=== PATIENT | male | born 1950 | race Caucasian/White ===

== ENCOUNTER → 2024-11-14 | Outpatient (CLI) | payer MEDICARE, BC, SELFPAY ==
[2024-11-14 09:23] LABS: Glucose Estimated Average 120 mg/dL (80-131); Hemoglobin A1C 5.8 % Hgb (4.8-6.0)
[2024-11-14 09:37] LABS: Alanine Aminotransferase 23 U/L (10-49); Albumin, Serum 4.3 gm/dL (3.4-4.8); Alkaline Phosphatase 77 U/L (46-116); Anion Gap 7 (7-16); Aspartate Amino Transferase 18 U/L (0-34); BUN/Creatinine Ratio 25 Ratio (12-20); Bilirubin,Total 0.7 mg/dL (0.3-1.2); Blood Urea Nitrogen 15 mg/dL (9-23); Calcium 9.2 mg/dL (8.3-10.6); Calcium (Corrected) 9.2 mg/dL (8.5-10.1); Carbon Dioxide 25.8 mMol/L (20.0-31.0); Chloride 105 mMol/L (98-107); Creatinine (Component) 0.6 mg/dL (0.6-1.3); Globulin 2.2 gm/dL (2.3-3.5); Glucose 124 mg/dL (74-106); Osmolality,Calculated 277 (275-295); Potassium 4.3 mMol/L (3.4-5.1); Sodium 138 mMol/L (136-145); Total Protein 6.5 gm/dL (5.7-8.2); eGFR > 60 See Note
[2024-11-14 09:52] LABS: Cardiac Risk Estimate 3.7 RATIO (4.0-6.7); Cholesterol 123 mg/dL (132-200); HDL Cholesterol 33 mg/dL (40-60); LDL Cholesterol,Calculated 66 mg/dL (0-130); Triglycerides 120 mg/dL (30-150)
[2024-11-14 09:53] LABS: Creatinine MALB Rnd Ur 104 mg/dL (30-125); Microalbumin Creat Ratio 4 mg/gCrea (<30); Microalbumin, Random Urine 4 mg/L (0-300)
== END | disposition home or self-care (01) ==
LOC: COPL 07:48
PROVIDERS: PCP Family Medicine; Referring Provider Family Medicine; Visit Provider Family Medicine
DX: E11.42 Type 2 diabetes mellitus with diabetic polyneuropathy (principal)
CPT/HCPCS: 36415; 80053; 80061; 82043; 82570; 83036

== ENCOUNTER 2025-05-04 07:14 | Emergency (ER) | payer MEDICARE, BC, SELFPAY ==
[2025-05-04 07:37] VITALS: BP 150/76; PULSE 58; RESP 18; TEMP 36.3; O2SAT 95; BMI 33.0
--- NOTE | 2025-05-04 07:46 | XR_ITS ---
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
--- NOTE | 2025-05-04 07:46 | XR_ITS ---
Examination: Foot, left, 3 views Technique: AP, oblique, lateral views foot, 3 views Date and time of exam: May 04, 2025, 0754 hours INDICATIONS: Left foot swelling and pain post venous procedure October 2024 FINDINGS: Moderate osteoarthritis first metatarsophalangeal joint Old fracture appearing deformities involving bases fifth fourth and third metatarsals Moderate osteoarthritis tarsometatarsal joints Moderate osteoarthritis intertarsal joints as well as tibiotalar and subtalar joint Abundant ossification in the Achilles insertion 4 mm plantar bony calcaneal spur IMPRESSION: Significant osteoarthritis as above No tona cortical bone destruction, no foreign body
--- NOTE | 2025-05-04 07:46 | XR_ITS ---
Examination: Duplex scan of the lower extremity, unilateral left Date and time of exam: Artery 17, 2024, 0819 hours INDICATIONS: Left foot swelling bruising several months Technique: Duplex scan of the extremity veins using B-mode/grayscale imaging and Doppler spectral analysis and color flow Attention is directed to internal echogenicity, compression and augmentation involving these veins, color flow assessment, spectral analysis Findings: Major deep venous structures in the extremity demonstrate normal course and caliber. There is no evidence of deep vein thrombosis. Normal color flow and spectral analysis Impression: Negative for DVT..
[2025-05-04 08:10] LABS: Basophils # (Auto) 0.0 Thou/mm3 (0.0-0.2); Basophils % (Auto) 1 % (0-2.5); Eosinophils # (Auto) 0.1 Thou/mm3 (0.0-0.5); Eosinophils % (Auto) 2 % (0-10); Hematocrit 38.6 % (41.0-53.0); Hemoglobin 13.4 g/dL (13.5-16.0); Immature Granulocytes Auto 0.01 Thou/mm3 (0.00-0.00); Lymphocytes # (Auto) 1.4 Thou/mm3 (1.0-4.8); Lymphocytes % (Auto) 40 % (10-50); Mean Corpuscular HGB Conc 34.7 g/dl (31.0-37.0); Mean Corpuscular Hemoglobin 31.8 pg (25.0-35.0); Mean Corpuscular Volume 92 fL (80-100); Monocytes # (Auto) 0.7 Thou/mm3 (0.0-0.8); Monocytes % (Auto) 20 % (0-12); Neutrophils # (Auto) 1.2 Thou/mm3 (1.8-7.7); Neutrophils % (Auto) 37 % (37-80); Nucleated Red Blood Cell # 0.00 Thou/mm3 (0.00-0.00); Nucleated Red Blood Cell % 0 /100 WBC (0); Platelet Count 199 Thou/mm3 (140-440); RDW Standard Deviation 49.4 fL (35.1-43.9); Red Blood Count 4.21 Miln/mm3 (4.50-5.90); White Blood Count 3.4 Thou/mm3 (3.8-10.6)
[2025-05-04 08:30] LABS: Alanine Aminotransferase 25 U/L (10-49); Albumin, Serum 4.2 gm/dL (3.4-4.8); Albumin/Globulin Ratio 2.1 (1.2-2.2); Alkaline Phosphatase 89 U/L (46-116); Anion Gap 8 (7-16); Aspartate Amino Transferase 23 U/L (0-34); BUN/Creatinine Ratio 19 Ratio (12-20); Bilirubin,Total 0.6 mg/dL (0.3-1.2); Blood Urea Nitrogen 13 mg/dL (9-23); Calcium 9.0 mg/dL (8.3-10.6); Calcium (Corrected) 9.0 mg/dL (8.5-10.1); Carbon Dioxide 28.2 mMol/L (20.0-31.0); Chloride 108 mMol/L (98-107); Creatinine (Component) 0.7 mg/dL (0.6-1.3); Estimated Creatinine Clearance 112.0 mL/min (>60); Globulin 2.0 gm/dL (2.3-3.5); Glucose 127 mg/dL (74-106); INR 1.1 (0.9-1.3); Osmolality,Calculated 288 (275-295); Partial Thromboplastin Time 33.3 Seconds (22.0-36.0); Potassium 4.1 mMol/L (3.4-5.1); Prothrombin Time 11.3 Seconds (9.0-12.2); Sodium 144 mMol/L (136-145); Total Protein 6.2 gm/dL (5.7-8.2); eGFR > 60 See Note
--- NOTE | 2025-05-04 08:55 | PD.EDEXREM ---
ED Extremity Problem RME/HPI General Chief complaint: Extremity Problem,Nontraumatic Stated complaint: Left leg swelling, vein seal done in October Time Seen by Provider: 05/04/25 07:28 Arrival date/time: 05/04/25 07:14 74-year-old male presents to the Emergency Department for complaints of left leg pain and swelling with mild bruising. Limitations: no limitations Related Data Home Medications ?Medication ?Instructions ?Recorded ?Confirmed atorvastatin 20 mg tablet 20 mg PO QDAY 02/21/19 07/29/21 clonazepam 0.5 mg tablet 0.5 mg PO BID 02/21/19 07/29/21 losartan 100 mg tablet 100 mg PO QDAY 02/21/19 07/29/21 metformin 850 mg tablet 850 mg PO BID 02/21/19 07/29/21 primidone 50 mg tablet 150 mg PO HS 02/21/19 07/29/21 cholecalciferol (vitamin D3) 50 50 mcg PO QDAY 07/29/21 07/29/21 mcg (2,000 unit) tablet (Vitamin D3) vitamin B complex 1 tab PO QDAY 07/29/21 07/29/21 Previous Rx's ?Medication ?Instructions ?Recorded ibuprofen 600 mg tablet 600 mg PO Q8H PRN fever or pain 02/11/24 #20 tabs Allergies Allergy/AdvReac Type Severity Reaction Status Date / Time No Known Allergies Allergy Verified 05/04/25 07:21 Review of Systems Review of Systems Systems Reviewed: All systems reviewed, normal except as documented Constitutional Constitutional: Reports system reviewed and no additional complaints, except as documented, Denies fever(s) and Denies headache(s) Eyes Eyes: Reports system reviewed and no additional complaints, except as documented and Denies blurry vision ENT Ears, Nose, Mouth, and Throat: Reports system reviewed and no additional complaints, except as documented, Denies headache(s), Denies nasal congestion and Denies nasal discharge Cardiovascular Cardiovascular: Reports system reviewed and no additional complaints, except as documented, Denies chest pain and Denies dyspnea Respiratory Respiratory: Reports system reviewed and no additional complaints, except as documented, Denies chest congestion, Denies cough and Denies dyspnea Gastrointestinal Gastrointestinal: Reports system reviewed and no additional complaints, except as documented and Denies abdominal pain Integumentary/Breasts Skin/Breast: Reports system reviewed and no additional complaints, except as documented, Denies rash and Reports other (Bruising left lower extremity) Neurologic Neurologic: Reports system reviewed and no additional complaints, except as documented, Reports as per HPI and Denies headache(s) Past Medical History Past Medical History NEUROLOGIC: Positive Neurological Disorders, Cerebral Palsy and Peripheral Neuropathy; Negative Seizures CARDIAC: Positive Cardiac Disorders (IRREGULAR HR. 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) and Fractures (RIGHT ARM HAD SURG) ENDOCRINE: Positive Endocrine Disorders and Diabetes Mellitus Type 2 (TAKES PO MED); Negative Diabetes Mellitus Type 1 HEMATOLOGIC: Negative Blood Disorders OTHER HISTORY: Positive Chicken Pox and Measles; Negative Hospitalization, Autoimmune Disease, Shingles, Falls (FALL HAS UNSTEADY GAIT), Blood Transfusions, Blood Transfusion Reaction, Anesthesia Reactions, Organ Transplant, Chemotherapy, Radiation Therapy, MRSA, Mumps or Cancer Family History FAMILY HISTORY: Positive Family Cardiac Disorders (FATHER ([place])), Family Gastrointestinal Problems (FATHER (ULCER)) and Family Surgery (FATHER); Negative Family Psychiatric Problems, Family Respiratory Disorders, Family Cancer or Family Anesthesia Reaction Surgical History SURGICAL: Positive Tonsillectomy, Open Reduction Internal Fixation (RIGHT ELBOW) and Vasectomy; Negative Cardiac Surgery (STRESS TEST), Pacemaker, Endocrine Surgery, Abdominal Surgery, Nephrectomy, Neurologic Surgery or Organ Transplant Social History SMOKING STATUS: Never smoker ED Exam General Limitations: Present no limitations General appearance: Present alert and in no apparent distress Head Head exam: Present atraumatic Eye Eye exam: Present normal appearance, PERRL and EOMI ENT ENT exam: Present normal exam, normal oropharynx and mucous membranes moist Neck Neck exam: Present normal inspection, full ROM and trachea midline Chest Chest inspection: Present normal inspection and symmetric chest wall rise Respiratory Respiratory exam: Present normal lung sounds bilaterally Cardiovascular Cardiovascular exam: Present regular rate, normal rhythm and normal heart sounds Abdominal Exam Abdominal exam: Present soft and normal bowel sounds Extremities Exam Extremities exam: Present normal inspection and full ROM Back Exam Back exam: Present normal inspection and full ROM Neurological Exam Neurological exam: Present alert, oriented X3 and CN II-XII intact Psychiatric Psychiatric exam: Present normal affect and normal mood Skin Skin exam: Present warm, dry, intact and other (Left lower extremity bruising) Course Quality Measures none Orders Category Date Time Status US venous doppler LE LT Stat Exams 05/04/25 07:46 Completed XR foot comp LT min 3V Stat Exams 05/04/25 07:46 Completed XR tibia fibula LT 2V Stat Exams 05/04/25 07:46 Completed CBC Stat Lab 05/04/25 08:00 Completed Comprehensive Metabolic Panel Stat Lab 05/04/25 08:00 Completed Partial Thromboplastin Time Stat Lab 05/04/25 08:00 Completed Prothrombin Time with INR Stat Lab 05/04/25 08:00 Completed Vital Signs Vital signs: Vital Signs Temperature 97.4 F 05/04/25 07:37 Pulse Rate 58 L 05/04/25 07:37 Respiratory Rate 18 05/04/25 07:37 Blood Pressure 150/76 H 05/04/25 07:37 Pulse Oximetry (%) 95 05/04/25 07:37 Oxygen Delivery Method Room Air 05/04/25 07:37 O2 saturation 95% room air within the limits Extremity Problem MDM Narrative MDM Narrative:: 74-year-old male presents to the Emergency Department for complaints of left leg pain and swelling with mild bruising. On exam patient well-appearing patient does not appear ill or toxic distress On exam patient has swelling and bruising left lower extremity Patient's good capillary fill leg is warm not cold to touch Lab work and imaging obtained no acute emergent findings noted Patient discharged home in no distress to follow-up with primary care doctor in the next 24 to 48 hours and for any worsening symptoms to return to the ER immediately Patient data External records reviewed:: [facility] previous records Clinical information provided by:: patient Social determinants that could affect healthcare access:: none Patient has the following chronic illnesses:: None How is presenting disease/condition affected by chronic disease/condition?: no chronic disease Evaluation data The following diagnostics were reviewed and interpreted by me:: lab results and radiology exam(s) Lab and/or radiology exams considered but not ordered:: Labs radiology obtained Interpretation Summary: Reviewed by me Medications / Prescriptions Medications or Prescriptions considered but not ordered:: Given Medication administrations:: Given Consultations Consultation(s) initiated? (list below): No Diagnosis Extremity Problem Differential Diagnosis: cellulitis, superficial thrombophlebitis, lower extremity edema and deep vein thrombosis of lower extremity Most likely diagnosis given after review of the tests above:: Bruising lower extremity Admission Indicated Admission indicated?: not indicated Admission Request Was there a request for admission?: No Disposition Plan Disposition Plan: Discharge Discharge Attestation Discharge Attestation: The patient and all family members were given an opportunity to ask questions and understood the discharge instructions. Discharge instructions specifically effects, indications for sooner follow up or return to the emergency department, and the expected course of current diagnosis. Patient condition: Stable Discharge Plan Plan Patient Disposition: HOME (Self Care) Discharge Disposition comment: Stable Prescriptions/Referrals Prescriptions/Med Rec: No Action primidone 50 mg Tablet 150 mg PO HS atorvastatin 20 mg Tablet 20 mg PO QDAY clonazepam 0.5 mg Tablet 0.5 mg PO BID metformin 850 mg Tablet 850 mg PO BID losartan 100 mg Tablet 100 mg PO QDAY vitamin B complex Tablet 1 tab PO QDAY cholecalciferol (vitamin D3) [Vitamin D3] 50 mcg (2,000 unit) Tablet 50 mcg PO QDAY ibuprofen 600 mg tablet 600 mg PO Q8H PRN (Reason: fever or pain) Qty: 20 0RF Referrals: Jacky Levin MD [Primary Care Provider, Family Practice] - 05/07/25 Problem List Clinical Impression: Superficial bruising of lower leg Patient/Caregiver Discharge Instructions Education Materials: Bruises (Contusions) Additional Instructions: Please follow up with your primary care doctor in the next 24-48hrs for any worsening symptoms return here immediately Print Language: Kyrgyz Stand Alone Forms: Shelley Award Info., Patient Portal Info Letter PA/[employer] Supervising Physician PA/ANNELISE Supervising Physician: Dr Camarena
== END 2025-05-04 09:27 | disposition home or self-care (01) ==
PROVIDERS: Nurse Practitioner Primary Care; Emergency Provider Family Medicine; PCP Family Medicine
DX: S80.12XA Contusion of left lower leg, initial encounter (principal); Z79.84 Long term (current) use of oral hypoglycemic drugs; Z95.0 Presence of cardiac pacemaker; W22.8XXA Striking against or struck by other objects, initial encounter
CPT/HCPCS: 36415; 73590; 73630; 80053; 85025; 85610; 85730; 93971; 99283